=== PATIENT | female | born 1990 ===

== ENCOUNTER 2023-11-08 10:38 | Emergency (ER) | payer OTHER ==
[~2023-11-08] VITALS: Ht 160 cm; Wt 99.8 kg
[2023-11-08] MEDS ORDERED: Robaxin750 MG PO (13:48)
[2023-11-08 13:52] VITALS: BP 121/87
[2023-11-08] MEDS ORDERED: ONDA4ODT MM (13:53)
== END 2023-11-08 14:00 | disposition home or self-care (01) ==
LOC: ER 10:38
DX: S16.1XXA Strain of muscle, fascia and tendon at neck level, initial encounter (principal); S39.012A Strain of muscle, fascia and tendon of lower back, initial encounter; S20.212A Contusion of left front wall of thorax, initial encounter; S09.90XA Unspecified injury of head, initial encounter; S50.312A Abrasion of left elbow, initial encounter; M25.512 Pain in left shoulder; G43.909 Migraine, unspecified, not intractable, without status migrainosus; Z79.899 Other long term (current) drug therapy; V57.5XXA Driver of pick-up truck or van injured in collision with fixed or stationary object in traffic accident, initial encounter; Y92.410 Unspecified street and highway as the place of occurrence of the external cause
CPT/HCPCS: 70450; 71046; 72125; 72131; 90471; 90714; 96374; 96375; 99285-25; J1885; J2765; J3010; L0160